=== PATIENT | female | born 1955 | race Caucasian/White ===

== ENCOUNTER → 2017-11-14 10:46 | Outpatient (CLI) | payer BC, SELFPAY ==
--- NOTE | 2017-11-14 10:47 | MM_ITS ---
MM Dig screening mamm BI w/CAD CAD Screening COMPARISON: None, previous mammograms at [facility] in 2004 are not available for review INDICATION: There is no personal or family history of breast cancer TECHNIQUE: Standard CC and MLO images were obtained. R2 CAD reviewed. FINDINGS: Is a markedly dense and heterogenic parenchymal pattern lessening the sensitivity of mammography. The findings on the lateral symmetrical. There is a benign-appearing calcification left breast and a couple of tiny benign-appearing calcifications right breast. There is no suspicious lesion and no suspicious microcalcifications.. IMPRESSION: Markedly dense parenchymal pattern with no suspicious lesion seen BI-RADS Category: 2 Benign Finding(s) RECOMMENDED FOLLOW-UP: 1YR - 1 YEAR FOLLOW-UP (A letter has been sent to the patient regarding results of the study.)
== END ==
PROVIDERS: PCP Nurse Practitioner Family; Visit Provider Nurse Practitioner Family
DX: Z12.31 Encounter for screening mammogram for malignant neoplasm of breast (principal)
CPT/HCPCS: 77067

== ENCOUNTER → 2020-10-08 08:03 | Outpatient (CLI) | payer BC, SELFPAY ==
--- NOTE | 2020-10-08 08:06 | MM_ITS ---
PROCEDURE INFORMATION: Exam: MG Screening 3D Mammography Exam date and time: 10/08/2020 8:06 AM Age: 64 years old Clinical indication: Encounter for screening mammogram for malignant neoplasm of breast TECHNIQUE: Imaging protocol: Screening tomosynthesis and 2D mammography including computer-aided detection (CAD) when performed. COMPARISON: MG SCBI MM Dig screening mamm BI w/CAD 11/14/2017 11:03 AM FINDINGS: MAMMOGRAPHY: Breast composition: The breast tissue is heterogeneously dense, which may obscure small masses. Mass: 0.5cm mass in the middle third of the left central breast Architectural distortion: None. Calcifications: No suspicious calcifications. Asymmetric density: None. Skin thickening: None. Axillary adenopathy: None. IMPRESSION: Patient to be recalled for spot compression views of the left breast in the CC and MLO projections and left breast ultrasound for further evaluation of a left breast mass. ASSESSMENT: BI-RADS Category 0: Incomplete- Need Additional Imaging Evaluation and/or Prior Mammograms for Comparison
== END ==
PROVIDERS: PCP Physician Assistant; Visit Provider Physician Assistant
DX: Z12.31 Encounter for screening mammogram for malignant neoplasm of breast (principal)
CPT/HCPCS: 77063; 77067

== ENCOUNTER → 2020-11-27 14:14 | Outpatient (CLI) | payer BC, SELFPAY ==
--- NOTE | 2020-11-27 14:16 | MM_ITS ---
PROCEDURE: MM DIG MAMM DX UNILAT LT CAD Digital Breast Tomosynthesis Included CLINICAL INDICATION: ABN MAMM OF LT BREAST COMPARISON: MG MM DIG SCREENING MAMM BI W/CAD from 10/08/2020 MG MM DIG MAMM DX UNILAT LT CAD from 11/27/2020 US US BREAST LT COMPLETE from 11/27/2020 TECHNIQUE: Standard CC and MLO images and 3D Tomosynthesis was obtained. R2 CAD reviewed. FINDINGS: The breast is composed of heterogeneously dense fibroglandular tissue, may obscure small masses. Previously noted focal asymmetric density in the left outer central breast at approximately 9 o'clock position, measuring 5 centimeters from the nipple persists on spot compression images. Focal hyperechoic lesion is noted in the left breast at the area of concern. Benign appearing calcification is noted in the left breast. IMPRESSION: Probably benign finding. BI-RAD Category: 3 Probably Benign Finding Short Term Follow-up FOLLOW-UP: 6 month Follow-up. Spot compression images and ultrasound are recommended. (A letter has been sent to the patient regarding results of the study.) Dictated by: Pai Trevino 11/27/2020 16:50 Pia Trevino in OV 11/27/2020 16:50
--- NOTE | 2020-11-27 14:16 | US_ITS ---
PROCEDURE: US BREAST LT COMPLETE CLINICAL INDICATION: ABN MAMM OF LT BREAST COMPARISON: MG MM DIG MAMM DX UNILAT LT CAD from 11/27/2020 FINDINGS: No focal mass lesions or suspicious findings. At the area of concern at 9 o'clock position there is a focal hyperechoic lesion noted, most likely represents a intramammary lymph node. Dense fibroglandular tissue is noted in the left breast. Left axillary lymph nodes are noted measuring up to 3 x 2 centimeters, demonstrates normal morphology and central fatty hilum. IMPRESSION: Findings are suggestive of an intramammary lymph node. Please see diagnostic mammogram report of the same date for further recommendations. Dictated by: Pia Trevino 11/27/2020 16:50 Pia Trevino in OV 11/27/2020 16:50
== END ==
PROVIDERS: PCP Physician Assistant; Visit Provider Physician Assistant
DX: R92.8 Other abnormal and inconclusive findings on diagnostic imaging of breast (principal)
CPT/HCPCS: 76641; 77061; 77065; G0279

== ENCOUNTER → 2022-02-17 11:46 | Outpatient (CLI) | payer BC, MEDICARE, SELFPAY ==
--- NOTE | 2022-02-17 11:58 | XR_ITS ---
FINAL REPORT CLINICAL HISTORY: HIP AND PELVIC PAIN-- pt fell FINDINGS: LEFT HIP Two views of the left hip including an AP pelvis demonstrate no acute fracture or dislocation. There are mild degenerative changes of the hips and lower lumbar spine. The visualized bony structures are well aligned. No soft tissue abnormality is seen. IMPRESSION: Mild degenerative change with no acute bony abnormality. If symptoms persist, follow-up CT or MRI may be helpful. Reviewed, Interpreted and Dictated by Deandre Templeton III, MD Transcribed by Mary Anne George Authenticated and [facility]
--- NOTE | 2022-02-17 11:59 | XR_ITS ---
FINAL REPORT CLINICAL HISTORY: MIDLINE LOW BACK PAIN-- pt fell FINDINGS: SACRUM/COCCYX Three views were obtained. There is no acute fracture or dislocation. There are mild degenerative changes in the lower lumbar spine. There is no soft tissue abnormality. IMPRESSION: No acute bony abnormality. Reviewed, Interpreted and Dictated by Deandre Templeton III, MD Transcribed by Mary Anne George Authenticated and . [facility]
== END ==
PROVIDERS: PCP Physician Assistant; Visit Provider Physician Assistant
DX: M54.50 Low back pain, unspecified (principal); M25.552 Pain in left hip; R10.2 Pelvic and perineal pain
CPT/HCPCS: 72220; 73502

== ENCOUNTER → 2022-08-30 07:55 | Outpatient (CLI) | payer MEDICARE, SELFPAY ==
--- NOTE | 2022-08-30 07:59 | MM_ITS ---
PROCEDURE INFORMATION: Exam: MG Bilateral Screening 3D Mammography Exam date and time: 08/30/2022 7:50 AM Age: 66 years old Clinical indication: Screening. No family history of breast cancer. TECHNIQUE: Imaging protocol: Bilateral Screening tomosynthesis and 2D mammography including computer-aided detection (CAD) when performed. COMPARISON: 1. MG MM DIG MAMM DX UNILAT LT CAD 11/27/2020 2:34 PM 2. MG MM DIG SCREENING MAMM BI W/CAD 10/08/2020 8:04 AM 3. MG SCBI MM Dig screening mamm BI w/CAD 11/14/2017 11:03 AM FINDINGS: MAMMOGRAPHY: Breast composition: The breasts are heterogeneously dense, which may obscure small masses. Mass: None. Architectural distortion: None. Calcifications: No suspicious calcifications. Asymmetric density: None. Skin thickening: None. Axillary adenopathy: None. IMPRESSION: No mammographic evidence of malignancy. Annual screening is recommended unless otherwise clinically indicated. ASSESSMENT: BI-RADS Category 1: Negative
== END ==
PROVIDERS: PCP Physician Assistant; Visit Provider Family Medicine
DX: Z12.31 Encounter for screening mammogram for malignant neoplasm of breast (principal)
CPT/HCPCS: 77063; 77067

== ENCOUNTER → 2022-09-17 08:51 | Outpatient (CLI) | payer MEDICARE, SELFPAY ==
--- NOTE | 2022-09-17 08:54 | XR_ITS ---
FINAL REPORT TECHNIQUE: Bone densitometry calculations of the lumbar spine and left hip were obtained. CLINICAL HISTORY: . post menopausal FINDINGS: Using L1-4, the bone mineral density of the spine is 0.828 g/cm2, corresponding to T-score of -2.0. Using the left hip, the bone mineral density of the femoral neck is 0.732 g/cm2, corresponding to a T-score of -1.7. Using the right hip, the bone mineral density of the femoral neck is 0.741 g/cm2, corresponding to a T-score of -1.6. NOTE: T-score: Standard deviation compared with peak bone mass of young adult mean. *Following the recommendations of the International Society of Bone densitometry, classification of hip BMD is based on the lower of two T-scores; total hip or femoral neck. IMPRESSION: Diminished bone mineral density of the lumbar spine and both hips consistent with osteopenia. FRAX data reports 10% major osteoporotic fracture and 3% hip fracture. Reviewed, Interpreted and Dictated by Kaitlin Polanco MD Transcribed by Malka Dsouza Authenticated and [facility]
== END ==
PROVIDERS: PCP Physician Assistant; Visit Provider Family Medicine
DX: Z78.0 Asymptomatic menopausal state (principal)
CPT/HCPCS: 77080

== ENCOUNTER 2023-09-07 10:16 | Outpatient (CLI) | payer MEDICARE, SELFPAY ==
--- NOTE | 2023-09-07 10:20 | MM_ITS ---
PROCEDURE INFORMATION: Exam: MG Bilateral Screening 3D Mammography Exam date and time: 09/07/2023 10:24 AM Age: 67 years old Clinical indication: Screening. No family history of breast cancer. TECHNIQUE: Imaging protocol: Bilateral Screening tomosynthesis and 2D mammography including computer-aided detection (CAD) when performed. COMPARISON: 1. MG MM DIG SCREENING MAMM BI W/CAD 08/30/2022 7:50 AM 2. MG MM DIG MAMM DX UNILAT LT CAD 11/27/2020 2:34 PM 3. MG MM DIG SCREENING MAMM BI W/CAD 10/08/2020 8:04 AM FINDINGS: MAMMOGRAPHY: Breast composition: Mass: None. Architectural distortion: None. Calcifications: No suspicious calcifications. Asymmetric density: None. Skin thickening: None. Axillary adenopathy: None. IMPRESSION: No mammographic evidence of malignancy. Annual screening is recommended unless otherwise clinically indicated. The breasts are heterogeneously dense, which may obscure small masses. ASSESSMENT: BI-RADS Category 1: Negative
== END 2023-09-07 23:59 | disposition home or self-care (01) ==
LOC: RAD 10:17
PROVIDERS: PCP Physician Assistant; Visit Provider Physician Assistant
DX: Z12.31 Encounter for screening mammogram for malignant neoplasm of breast (principal)
CPT/HCPCS: 77063; 77067

== ENCOUNTER 2025-01-03 15:32 | Outpatient (CLI) | payer MEDICARE, SELFPAY ==
--- OUTSIDE RECORDS SUMMARY | 2025-01-03 15:34 | XMS_ITS ---
Author Organization Unknown Immunizations Date Vaccine DateAdministered TimeAdministered VaccineCode Dose Strength Unit [employer] DueDate CptCode CvxCode ManufacturerCode LocationCode AdministeredBy 03/02 00:00 :00 xFlu shot- 6months- 36 months of age-PREV -FREE-tr ivalent 03/02/2024 00:00:00 315496 0.5 mL [employer] (Formerly [employer]) [id number] 140 [employer] (Former[employer])
--- NOTE | 2025-01-03 15:35 | MM_ITS ---
PROCEDURE INFORMATION: Exam: MG Bilateral Screening 3D Mammography Exam date and time: 01/03/2025 3:37 PM Age: 69 years old Clinical indication: Screening examination TECHNIQUE: Imaging protocol: Bilateral Screening tomosynthesis and 2D mammography including computer-aided detection (CAD) when performed. COMPARISON: 1. MG MM DIG SCREENING MAMM BI W/CAD 09/07/2023 10:24 AM 2. MG MM DIG SCREENING MAMM BI W/CAD 08/30/2022 7:50 AM 3. MG MM DIG MAMM DX UNILAT LT CAD 11/27/2020 2:34 PM 4. MG MM DIG SCREENING MAMM BI W/CAD 10/08/2020 8:04 AM FINDINGS: MAMMOGRAPHY: Breast composition: The breasts are heterogeneously dense, which may obscure small masses. Mass: No suspicious masses. Architectural distortion: No suspicious distortion. Calcifications: No suspicious calcifications. Asymmetric density: None. Skin thickening: None. Axillary adenopathy: None. IMPRESSION: No mammographic evidence of malignancy. Annual screening is recommended unless otherwise clinically indicated. ASSESSMENT: BI-RADS Category 1: Negative.
== END 2025-01-03 23:59 | disposition home or self-care (01) ==
LOC: RAD 15:33
PROVIDERS: PCP Physician Assistant; Visit Provider Physician Assistant
DX: Z12.31 Encounter for screening mammogram for malignant neoplasm of breast (principal); R92.333 Mammographic heterogeneous density, bilateral breasts
CPT/HCPCS: 77063; 77067

== ENCOUNTER 2025-02-22 09:01 | Outpatient (CLI) | payer MEDICARE, SELFPAY ==
--- NOTE | 2025-02-22 09:04 | XR_ITS ---
FINAL REPORT TECHNIQUE: Bone densitometry calculations of the lumbar spine and left hip were obtained. CLINICAL HISTORY: SCREENING COMPARISON: 09/17/2022 FINDINGS: Using L1-4, the bone mineral density of the spine is 0.819 g/cm2, corresponding to T-score of -2.1 and a Z score of 0.1. This is within the range of osteopenia, and is similar when compared to the prior exam. Using the left hip, the bone mineral density of the femoral neck is 0.684 g/cm2, corresponding to a T-score of -2.1 and a Z-score of -0.6. This is within the range of osteopenia, and is slightly worse than the prior DEXA. Using the right hip, the bone mineral density of the femoral neck is 0.651 g/cm?, corresponding to a T-score of -1.8 and a Z-score of 0.0. This is within the range of osteopenia, and is similar to the prior DEXA of 2022. NOTE: T-score: Standard deviation compared with peak bone mass of young adult mean. *Following the recommendations of the International Society of Bone densitometry, classification of hip BMD is based on the lower of two T-scores; total hip or femoral neck. IMPRESSION: 1. Bone mineral density of the lumbar spine within the range of osteopenia. 2. Bone mineral density of the bilateral femoral necks within the range of osteopenia. Reviewed, Interpreted and Dictated by Fanny Lazo MD Transcribed by Alysia Avalos Authenticated and [facility]
--- NOTE | 2025-02-22 09:05 | CT_ITS ---
FINAL REPORT CLINICAL HISTORY: SCREENING CURRENT SMOKER 1/2PPD X55 YEARS COMPARISON: None FINDINGS: CT CHEST LOW DOSE SCREENING HISTORY: Screening exam for lung cancer. DOSE: CTDI vol: 2.90 mGy, DLP: 101.60 mGy*cm TECHNIQUE: Axial CT without IV contrast administration using low dose protocol. This study was performed with techniques to keep radiation doses as low as reasonably achievable, (ALARA). Individualized dose reduction techniques using automated exposure control or adjustment of mA and/or kV according to the patient's size were employed. No acute lung disease is present. There is evidence of remote granulomatous disease. There is a 2 mm left lower lobe nodule present, best seen on image #32 of series 4. No other nodules or masses are identified. No pleural or pericardial effusion is seen. No adenopathy or mass lesion is present. IMPRESSION: Single 2 mm nodule left lower lobe as described. LUNG RADS CATEGORY 2 RECOMMENDATION: 12 month LDCT follow up Reviewed, Interpreted and Dictated by Kaitlin Polanco MD Transcribed by Alysia Avalos Authenticated and [facility]
== END 2025-02-22 23:59 | disposition home or self-care (01) ==
LOC: RAD 09:02
PROVIDERS: PCP Physician Assistant; Visit Provider Physician Assistant
DX: Z13.820 Encounter for screening for osteoporosis (principal); M85.88 Other specified disorders of bone density and structure, other site; Z12.2 Encounter for screening for malignant neoplasm of respiratory organs; F17.210 Nicotine dependence, cigarettes, uncomplicated; R91.1 Solitary pulmonary nodule; J84.10 Pulmonary fibrosis, unspecified
CPT/HCPCS: 71271; 77080